=== PATIENT | female | born 1975 | race Caucasian/White ===

== ENCOUNTER 2020-11-06 10:44 | Emergency (ER) | payer MEDICAID ==
[~2020-11-06] VITALS: Ht 144.8 cm; Wt 61.2 kg
[2020-11-06 10:47] VITALS: Ht 144.8 cm; Wt 61.2 kg
[2020-11-06 12:39] LABS: BASOPHIL % 0.5 % (0.2-1.3); PLATELET COUNT 213 x10^3mcL (179-408); RED CELL DISTRIBUTION WIDTH 13.8 % (12.3-17.7)
[2020-11-06 13:12] LABS: CALCIUM 9.4 mg/dL (8.5-10.1); CARBON DIOXIDE 24.8 mmol/L (21-32); CHLORIDE SERUM 108 mmol/L (98-107); CREATININE SERUM 0.6 mg/dL (0.6-1.0); GFR1 > 60 mL/min; GLUCOSE SERUM 108 mg/dL (74-106); POTASSIUM SERUM 4.5 mmol/L (3.5-5.1); SODIUM SERUM 143 mmol/L (136-145)
[2020-11-06 13:15] LABS: microscopic required? YES; urine erythrocyte TRACE (NEGATIVE)
[2020-11-06 13:19] LABS: ALBUMIN 3.7 g/dL (3.4-5.0); ALKALINE PHOSPHATASE 63 U/L (46-116); ALT/SGPT 59 U/L (14-59); AST/SGOT 32 U/L (15-37); BILIRUBIN TOTAL 0.7 mg/dL (0.20-1.00); CHOLESTEROL 191 mg/dL (<200); CHOLESTEROL/HDL RATIO 3.5; HDL CHOLESTEROL 54 mg/dL (40-60); LIPASE 106 IU/L (73-393); TOTAL PROTEIN, SERUM 7.1 g/dL (6.4-8.2); TRIGLYCERIDES 84 mg/dL (<150)
[2020-11-06 13:43] VITALS: BP 137/80
== END 2020-11-06 13:43 | disposition home or self-care (01) ==
LOC: ED 10:44
PROVIDERS: Specialist
DX: R10.13 Epigastric pain (principal)

== ENCOUNTER 2020-11-19 19:05 | Emergency (ER) | payer MEDICAID ==
[~2020-11-19] VITALS: Ht 149.9 cm; Wt 54.4 kg
[2020-11-19 19:16] VITALS: Ht 149.9 cm; Wt 54.4 kg
[2020-11-19 20:36] LABS: BASOPHIL % 0.3 % (0.2-1.3); PLATELET COUNT 282 x10^3mcL (179-408); RED CELL DISTRIBUTION WIDTH 14.3 % (12.3-17.7)
[2020-11-19 20:44] LABS: ALBUMIN 3.8 g/dL (3.4-5.0); ALKALINE PHOSPHATASE 75 U/L (46-116); ALT/SGPT 69 U/L (14-59); AST/SGOT 35 U/L (15-37); BILIRUBIN TOTAL 0.8 mg/dL (0.20-1.00); CALCIUM 8.9 mg/dL (8.5-10.1); CARBON DIOXIDE 26.4 mmol/L (21-32); CHLORIDE SERUM 104 mmol/L (98-107); CREATININE SERUM 0.7 mg/dL (0.6-1.0); GFR1 > 60 mL/min; GLUCOSE SERUM 110 mg/dL (74-106); POTASSIUM SERUM 3.7 mmol/L (3.5-5.1); SODIUM SERUM 140 mmol/L (136-145); TOTAL PROTEIN, SERUM 7.1 g/dL (6.4-8.2)
[2020-11-19 22:34] VITALS: BP 143/94
== END 2020-11-19 22:34 | disposition home or self-care (01) ==
LOC: ED 19:05
PROVIDERS: Emergency Medicine
DX: F41.9 Anxiety disorder, unspecified (principal); K21.9 Gastro-esophageal reflux disease without esophagitis

== ENCOUNTER 2020-12-10 13:44 | Emergency (ER) | payer MEDICAID ==
[~2020-12-10] VITALS: Ht 147.3 cm; Wt 54.0 kg
[2020-12-10 13:53] VITALS: Ht 147.3 cm; Wt 54.0 kg
[2020-12-10 16:30] VITALS: BP 155/86
== END 2020-12-10 16:30 | disposition home or self-care (01) ==
LOC: ED 13:44
DX: R51.9 Headache, unspecified (principal); K21.9 Gastro-esophageal reflux disease without esophagitis; H57.89 Other specified disorders of eye and adnexa
CPT/HCPCS: J1885

== ENCOUNTER 2020-12-14 17:13 | Emergency (ER) | payer MEDICAID ==
[~2020-12-14] VITALS: Ht 154.9 cm; Wt 54.0 kg
[2020-12-14 17:29] VITALS: Ht 154.9 cm; Wt 54.0 kg
[2020-12-14] MEDS ORDERED: NAP375 PO (19:09)
[2020-12-14 19:36] VITALS: BP 150/80
== END 2020-12-14 19:36 | disposition home or self-care (01) ==
LOC: ED 17:13
DX: G44.209 Tension-type headache, unspecified, not intractable (principal); K21.9 Gastro-esophageal reflux disease without esophagitis
CPT/HCPCS: J1200; J1885